=== PATIENT | female | born 1955 | race Hispanic/Latino ===

== ENCOUNTER 2023-08-13 11:49 | Outpatient (CLI) | payer MEDICARE | END 2023-08-13 11:50 | disposition home or self-care (01) | LOC: NAV RAD 11:49 | PROVIDERS: ATTEND Nurse Practitioner Family | DX: M54.50 Low back pain, unspecified (principal); M47.816 Spondylosis without myelopathy or radiculopathy, lumbar region | CPT/HCPCS: 72100 ==